=== PATIENT | female | born 1975 | race Caucasian/White ===

== ENCOUNTER → 2016-05-09 | Outpatient (CLI) | payer MEDICAID ==
--- NOTE | 2016-05-13 07:54 | MM ---
Reason for exam: screening (asymptomatic). Last mammogram was performed 1 year and 2 months ago. History: Patient had first child at age 38. Took hormonal contraceptives for 15 years. Physical Findings: A clinical breast exam by your physician is recommended on an annual basis and results should be correlated with mammographic findings. MG 3D Screening Mammo W/Cad Bilateral CC and MLO view(s) were taken. Prior study comparison: March 15, 2015, bilateral MG 3d screening mammo w/cad. The breast tissue is heterogeneously dense. This may lower the sensitivity of mammography. Finding: There are typically benign round, grouped/clustered calcifications in the subareolar position of the left breast. There is no discrete abnormality. ASSESSMENT: Benign, BI-RAD 2 RECOMMENDATION: Routine screening mammogram of both breasts in 1 year.
== END | disposition home or self-care (01) ==
LOC: RADMAMWWP 13:31
PROVIDERS: ATTEND Family Medicine
DX: Z12.31 Encounter for screening mammogram for malignant neoplasm of breast (principal)
CPT/HCPCS: 77063; G0202

== ENCOUNTER → 2023-01-06 | Outpatient (CLI) | payer MEDICAID ==
--- NOTE | 2023-01-06 19:23 | MM ---
Reason for Exam: Screening (asymptomatic). Last mammogram was performed 6 year(s) and 8 month(s) ago. Patient History: Menarche at age 11. First Full-Term at age 38. Late child-bearing (after 30). Premenopausal. Patient used Hormonal Contraceptives for 15 years. Last menstrual period: 12/29/2022 Risk Values: Lien 5 year model risk: 1.3%. NCI Lifetime model risk: 12.5%. Prior Study Comparison: 03/15/2015 Bilateral Screening Mammogram, [facility]. 05/09/2016 Bilateral Screening Mammogram, [facility]. Tissue Density: The breast tissue is extremely dense which could obscure a lesion on mammography. Findings: Analyzed By CAD. Pattern appears symmetrical and stable. No significant interval change is evident. No suspicious groups of microcalcifications, spiculated or lobular masses, architectural distortion or other secondary signs of malignancy are mammographically apparent. Overall Assessment: Benign, BI-RAD 2 Management: Screening Mammogram of both breasts in 1 year. A negative mammogram report should not preclude additional follow up of suspicious palpable abnormalities. Patient should continue monthly self breast exam. A clinical breast exam by your physician is recommended on an annual basis and results should be correlated with mammographic findings. Electronically signed and approved by: Román Teixeira D.O. Radiologis
== END | disposition home or self-care (01) ==
LOC: RADMAMWWP 06:58
PROVIDERS: ATTEND Family Medicine
DX: Z12.31 Encounter for screening mammogram for malignant neoplasm of breast (principal)
CPT/HCPCS: 77063; 77067

== ENCOUNTER 2023-02-24 08:16 | Day surgery (SDC) | payer MEDICAID ==
[2023-02-17 09:23] VITALS: BMI 24.9
[~2023-02-24 08:16] MED LIST: LACTATED RINGERS 1,000 ML IV SCH
[2023-02-24 09:06] VITALS: TEMP 96.9
[2023-02-24] MEDS ORDERED: PROPOFOL 10 MG/ML 20 ML VIAL IV ONE (09:22)
--- NOTE | 2023-02-24 09:43 | P.PCN ---
Date of Procedure: 02/24/23 Procedure(s) Performed: BRIEF HISTORY: Patient is a 47-year-old pleasant white female scheduled for an elective colonoscopy as a part of screening for colon cancer. PROCEDURE PERFORMED: Colonoscopy. PREOPERATIVE DIAGNOSIS: Screening for colon cancer. IV sedation per Anesthesia. PROCEDURE: After informed consent was obtained, the patient, was brought into the endoscopy unit. IV sedation was administered by Anesthesia under continuous monitoring. Digital rectal examination was normal. Initially the Olympus CF-160 flexible video colonoscope was then inserted in the rectum, gradually advanced into the cecum without any difficulty. Careful examination was performed as the scope was gradually being withdrawn. Ileocecal valve and the appendiceal orifice were visualized and appeared normal. Prep was excellent. Mucosa of the cecum, ascending colon, transverse colon, descending colon, sigmoid colon, and rectum appeared normal. Retroflexion was performed in the rectum and no lesions were seen. The patient tolerated the procedure well. IMPRESSION: Normal-appearing colon from rectum to cecum with no runs of colorectal neoplasia . RECOMMENDATIONS: Findings of this examination were discussed with the patient as well as a family. She was advised to have a repeat screening colonoscopy in 10 years..
[2023-02-24] MEDS ORDERED: ONDANSETRON 4 MG/2 ML VIAL ONE (09:47)
[2023-02-24] MEDS ORDERED: ONDANSETRON 4 MG/2 ML VIAL IVP ONE (09:51)
[2023-02-24 09:53] VITALS: RESP 16
[2023-02-24 10:17] VITALS: BP 118/74; PULSE 75
== END 2023-02-24 10:15 | disposition home or self-care (01) ==
LOC: ORWHC2ENDO 08:16
PROVIDERS: ATTEND Internal Medicine Gastroenterology
DX: Z12.11 Encounter for screening for malignant neoplasm of colon (principal); Z88.0 Allergy status to penicillin; Z88.1 Allergy status to other antibiotic agents; Z79.899 Other long term (current) drug therapy
CPT/HCPCS: 81025; 45378; J2405; J2704

== ENCOUNTER → 2024-01-06 | Outpatient (CLI) | payer MEDICAID ==
--- NOTE | 2024-01-06 07:39 | MM ---
Reason for Exam: Clinical finding. Last screening mammogram was performed 12 month(s) ago. Patient History: Menarche at age 11. First Full-Term at age 38. Late child-bearing (after 30). Premenopausal. Patient used Hormonal Contraceptives for 15 years. Last menstrual period: 01/03/2024 Risk Values: Lien 5 year model risk: 1.3%. NCI Lifetime model risk: 12.3%. Prior Study Comparison: 03/15/2015 Bilateral Screening Mammogram, [facility]. 05/09/2016 Bilateral Screening Mammogram, [facility]. 01/06/2023 Bilateral MG 3D screening mammo w/cad, [facility]. Tissue Density: The breasts are heterogeneously dense, which may obscure small masses. Findings: Analyzed By CAD. A pain marker placed at the 5:00 position right breast. There is an underlying new area of focal asymmetry in the superficial aspect of the breast at the marker site. Otherwise, bilateral areas of asymmetric density are unchanged. No discrete abnormality otherwise seen. Overall Assessment: Incomplete: need additional imaging evaluation, BI-RAD 0 Management: Diagnostic Breast Ultrasound of the right breast. [facility], , 01/06/2024 7:35 AM. Electronically signed and approved by: Deshaun Mccormick M.D. Radiologist
--- NOTE | 2024-01-06 07:58 | USB ---
Reason for Exam: Clinical finding. Patient History: Menarche at age 11. First Full-Term at age 38. Late child-bearing (after 30). Premenopausal. Patient used Hormonal Contraceptives for 15 years. Risk Values: Lien 5 year model risk: 1.3%. NCI Lifetime model risk: 12.3%. Technique: Method: Targeted. Prior Study Comparison: 03/15/2015 Bilateral Screening Mammogram, [facility]. 05/09/2016 Bilateral Screening Mammogram, [facility]. 01/06/2023 Bilateral MG 3D screening mammo w/cad, [facility]. Findings: The lower inner quadrant of the right breast, the axilla of the right breast and the retroareolar of the right breast were scanned. Targeted ultrasound lower inner quadrant right breast including scanning of the subareolar region and axilla. The area of concern, 5:00 position, 4 cm from the nipple, there is focal thickening, heterogeneity, and hyperemia of the skin layer with underlying contiguous heterogeneous and hyperemic collection. Total dimension measuring up to 2.5 cm but the more hypoechoic, possibly phlegmonous area, measuring only 1.3 cm. No other solid or cystic lesion or axillary lymphadenopathy. Overall Assessment: Probably benign, BI-RAD 3 Management: Diagnostic Mammogram of the right breast in 2 months. Diagnostic Breast Ultrasound of the right breast in 2 months. For suspected focal breast infection and phlegmon which extends to the skin layer. No drainable abscess is identified. Results were given to the patient verbally at the time of exam. [facility], , 01/06/2024 7:55 AM. Electronically signed and approved by: Deshaun Mccormick M.D. Radiologist
== END | disposition home or self-care (01) ==
LOC: RADMAMWWP 06:52
PROVIDERS: ATTEND Family Medicine
DX: N61.1 Abscess of the breast and nipple (principal); R92.333 Mammographic heterogeneous density, bilateral breasts; Z98.82 Breast implant status
CPT/HCPCS: 77062; 77066

== ENCOUNTER → 2024-03-10 | Outpatient (CLI) | payer MEDICAID ==
--- NOTE | 2024-03-10 08:09 | USB ---
Reason for Exam: Additional evaluation requested from prior study. Patient History: Menarche at age 11. First Full-Term at age 38. Late child-bearing (after 30). Premenopausal. Patient used Hormonal Contraceptives for 15 years. 2024, Cyst Aspiration on the Right side. Risk Values: Lien 5 year model risk: 1.3%. NCI Lifetime model risk: 12.3%. Technique: Method: Targeted. Prior Study Comparison: 05/09/2016 Bilateral Screening Mammogram, [facility]. 01/06/2023 Bilateral MG 3D screening mammo w/cad, [facility]. 01/06/2024 Bilateral MG 3D diag mammo w/cad [facility], [facility]. Findings: The lower section of the breast of the right breast, the axilla of the right breast and the retroareolar of the right breast were scanned. Technique utilized:US breast limited RT Image; Ultrasound imaging of: Area of concern, retroareolar region and axilla. Suspected healing changes in the area of prior abscess drainage. No evidence for organizing fluid collection or mass. Overall Assessment: Probably benign, BI-RAD 3 Management: Diagnostic Breast Ultrasound of the right breast in 6 months. A clinical breast exam by your physician is recommended on an annual basis and results should be correlated with mammographic findings. This exam should not preclude additional follow-up of suspicious palpable abnormalities. Results were given to the patient verbally at the time of exam. [facility], , 03/10/2024 8:06 AM. Electronically signed and approved by: Jesse Cooney DO
--- NOTE | 2024-03-10 13:50 | MM ---
Reason for Exam: Follow-up at short interval from prior study. Last screening mammogram was performed 2 month(s) ago. Patient History: Menarche at age 11. First Full-Term at age 38. Late child-bearing (after 30). Premenopausal. Patient used Hormonal Contraceptives for 15 years. Risk Values: Lien 5 year model risk: 1.3%. NCI Lifetime model risk: 12.3%. Prior Study Comparison: 05/09/2016 Bilateral Screening Mammogram, [facility]. 01/06/2023 Bilateral MG 3D screening mammo w/cad, [facility]. 01/06/2024 Bilateral MG 3D diag mammo w/cad [facility], [facility]. Tissue Density: Right: The breasts are heterogeneously dense, which may obscure small masses. Analyzed By CAD. Overall Assessment: Incomplete: need additional imaging evaluation, BI-RAD 0 Management: Diagnostic Breast Ultrasound of the right breast. Results were given to the patient verbally at the time of exam. Patient should continue monthly self-breast exams. A clinical breast exam by your physician is recommended on an annual basis. This exam should not preclude additional follow-up of suspicious palpable abnormalities. Note on Lien scores and lifetime risk: 1. A Lien score greater than 3% is considered moderate risk. If this is the case, consider specialist referral to assess eligibility for a risk reducing agent. 2. If overall lifetime risk for the development of breast cancer is 20% or higher, the patient may qualify for future screening with alternating mammogram and breast MRI. [facility], , 03/10/2024 7:41 AM. Diagnostic Breast Ultrasound of the right breast. Electronically signed and approved by: Naun Grimes M.D.
== END | disposition home or self-care (01) ==
LOC: RADMAMWWP 07:04
PROVIDERS: ATTEND Family Medicine
DX: R92.8 Other abnormal and inconclusive findings on diagnostic imaging of breast (principal); R92.331 Mammographic heterogeneous density, right breast; R92.2 Inconclusive mammogram
CPT/HCPCS: 77061; 77065